=== PATIENT | female | born 1940 | race Native Hawaiian/Other Pacific Islander ===

== ENCOUNTER 2020-09-04 14:22 | Outpatient (CLI) | payer OTHER | END 2020-09-04 22:03 | disposition home or self-care (01) | LOC: US 14:22 → EDSEX 14:22 → US 14:30 | PROVIDERS: ATTEND Internal Medicine Cardiovascular Disease | DX: R09.89 Other specified symptoms and signs involving the circulatory and respiratory systems (principal) ==